=== PATIENT | male | born 1955 | race African-American/Black ===

== ENCOUNTER 2017-07-14 15:16 | Emergency (ER) | payer OTHER ==
--- NOTE | 2017-07-14 16:31 | RAD ---
LEFT WRIST THREE VIEW 07/14/17 HISTORY: Injury. COMPARISON: None. FINDINGS: No fracture. No malalignment. There is an old distal ulnar fracture. Absence of the ulnar styloid lik saige from chronic erosion. Mild degenerative disease of the thumb carpometacarpal joint. There is anterior osteophyte formation of the radiocarpal joint. Possibly an old body along the media l margin of the distal radius. There is a negative ulnar variance. IMPRESSION: 1. Chronic changes. No acute fracture or malalignment is appreciated. 2. Large joint effusion. POS: [facility]
== END 2017-07-14 16:48 | disposition home or self-care (01) ==
LOC: ERS 15:16
DX: M25.532 Pain in left wrist (principal); I10 Essential (primary) hypertension; W01.0XXA Fall on same level from slipping, tripping and stumbling without subsequent striking against object, initial encounter

== ENCOUNTER 2018-04-22 18:58 | Emergency (ER) | payer OTHER ==
[2018-04-22] MEDS ORDERED: HYDROcodone/Acetaminophen 7.5/325 mg Tablet ONE (19:22)
[2018-04-22] MEDS ORDERED: Ibuprofen 800 MG TAB ONE (19:23)
--- NOTE | 2018-04-22 19:32 | RAD ---
RIGHT FOOT THREE VIEWS: 04/22/18 INDICATION: Right foot pain. FINDINGS: Soft tissue swelling of the forefoot. There is scattered osteoarthrosis of the right foot. No acute f racture, subluxation is evident. There is enthesopathic changes off the calcaneus. IMPRESSION: 1. Soft tissue swelling of the ankle and right foot. 2. Scattered osteoarthrosis of the right foot. The osseous structures do not appear appreciably changed from a comparison dated 10/05/16. POS: [facility]
[2018-04-22] MEDS ORDERED: Dexamethasone 4 mg/ml Vial ONE (19:55)
== END 2018-04-22 20:33 | disposition home or self-care (01) ==
LOC: ERS 18:58
DX: M79.671 Pain in right foot (principal); I10 Essential (primary) hypertension; M10.9 Gout, unspecified; W22.8XXA Striking against or struck by other objects, initial encounter
CPT/HCPCS: J1100

== ENCOUNTER 2019-09-13 11:22 | Inpatient (IN) | payer OTHER ==
[~2019-09-13 11:22] MED LIST: Iopamidol-370 76% 500 ML 1 ML ONE
[2019-09-13] MEDS ORDERED: Acetaminophen 500 MG TAB ONE (12:17)
[2019-09-13] MEDS ORDERED: Dexamethasone 10 MG/ML VIAL ONE (12:17)
[2019-09-13] MEDS ORDERED: Ketorolac Tromethamine 30 MG/ML VIAL ONE (12:17)
[2019-09-13] MEDS ORDERED: Sodium Chloride 0.9% 100 ML ONE (12:17)
[2019-09-13] MEDS ORDERED: cefTRIAXone\\ROCEPHIN 2 GM VIAL ONE (12:17)
[2019-09-13] MEDS ORDERED: Azithromycin 500 MG VIAL ONE (12:18)
[2019-09-13 12:28] LABS: #Eosinphils 0.1 thou/uL (0.0-0.7); #Lymphocytes 0.8 thou/uL (1.20-3.40); #Monocytes 0.8 thou/uL (0.11-0.59); #Neutrophils 12.8 thou/uL (1.40-6.50); %Basophils 0.2 % (0.0-1.0); %Eosinophils 0.6 % (0.0-10.0); %Lymphocytes 5.4 % (21.0-51.0); %Monocytes 5.2 % (0.0-10.0); %Neutrophils 88.7 % (42.0-75.0); Hemoglobin 10.3 g/dL (14.0-18.0); Mean Corpuscular HGB CONC 32.9 g/dL (32.0-36.0); Mean Corpuscular Volume 94.2 fL (78.0-98.0); Mean Platelet Volume 6.5 fL (7.4-10.4); Platelet Count 513 thou/uL (130-400); RBC Distribution Width 11.2 % (11.5-14.5); Red Blood Cell (RBC) Count 3.31 mill/uL (4.70-6.10); White Blood Cell (WBC) Count 14.5 thou/uL (4.8-10.8)
--- NOTE | 2019-09-13 12:46 | RAD ---
EXAM: Single view of the chest HISTORY: Covid with chest pain COMPARISON: 09/07/2013 FINDINGS: Single view of the chest shows a normal sized cardiomediastinal silhouette. Linear opacitie s in the peripheral aspect of the right lung may represent atelectasis or subtle infiltrates. The bones are unremarkable IMPRESSION: Possible right-sided pulmonary infiltrates.
[2019-09-13 12:53] LABS: ALT (SGPT) 13 U/L (8-55); AST (SGOT) 28 U/L (5-34); Albumin 3.3 g/dL (3.4-4.8); Alkaline Phosphatase 88 U/L (40-110); Anion Gap 14 mmol/L (10-20); BUN (Urea Nitrogen) 5 mg/dL (8.4-25.7); Bilirubin, Total 0.4 mg/dL (0.2-1.2); Calc. Creatinine Clearance 0 mL/min (70-130); Calcium 9.4 mg/dL (7.8-10.44); Carbon Dioxide 27 mmol/L (23-31); Chloride 97 mmol/L (98-107); Estimated GFR-MDRD Greater than 90; Globulin 4.8 g/dL (2.4-3.5); Glucose 121 mg/dL (80-115); Potassium 4.3 mmol/L (3.5-5.1); Protein, Total 8.1 g/dL (5.8-8.1); Sodium 134 mmol/L (136-145)
[2019-09-13] MEDS ORDERED: Ondansetron PF 4 MG/2 ML Vial IVP PRN (14:37)
[2019-09-13] MEDS ORDERED: Ondansetron ODT 4 MG TAB PO PRN (14:37)
[2019-09-13] MEDS ORDERED: Acetaminophen 325 MG TAB PO PRN (14:37)
[2019-09-13] MEDS ORDERED: Calcium Carbonate 500 MG ChewTAB PO PRN (14:37)
--- NOTE | 2019-09-13 14:44 | PDOC.HHP ---
Hospitalist HPI - History of Present Illness Fever/chills/cough x 4 days History of Present Illness: Mr. Roe is a 64-year-old male with hypertension presented to the emergency room with above complaints. Over the last 1 to 2 months patient has mild chronic cough without significant expectoration. Over the last 1 week his symptoms got worse. He started having fever along with chills and cough. The cough was productive of thick whitish phlegm. He felt generally weak and fatigued. He also complained of shortness of breath on [id number] exertion. No orthopnea paroxysmal nocturnal dyspnea palpitations chest pain or syncope reported. He denies recent immobilization travel. In the emergency room he was found to have fever up to 103 F with chest x-ray showing infiltrate. He was started on empiric antibiotics. COVID testing was sent. ED Course: VITAL SIGNS VITAL SIGNS Svitlana Sep 13, 2019 11:44 ZOILA Biggs Madeline BP: 143/90 (Lying), Pulse: 121, Resp: 18, Temp: 102.8 (Oral), Pain: 9, O2 sat: 92 on (Room Air), Time: 09/13/2019 11:44. VITAL SIGNS [facility] Sep 13, 2019 12:34 THIEN Munguia Jennifer BP: 167/88, Pulse: 116, Resp: 21, O2 sat: 96 on (Room Air), Time: 09/13/2019 12: 34. VITAL SIGNS [facility] Sep 13, 2019 13:03 THIEN Russell Julia BP: 143/87, Pulse: 104, Resp: 20, Temp: 103.1 (Oral), Pain: 8, O2 sat: 94 on ( Room Air), Time: 09/13/2019 13:03. MEDICATION ADMINISTRATION SUMMARY [facility] Sep 13, 2019 14:40 Drug Name Dose Ordered Route Status Time azithromycin intravenous 500 mg IV Piggy Back Given 13:14 09/13/2019 cefTRIAXone injection 2 g IV Push Given 12:34 09/13/2019 dexamethasone sodium phosphate injection 10 mg IV Push Given 12:28 09/13/2019 ketorolac injection 30 mg IV Push Given 12:26 09/13/2019 acetaminophen oral 1000 mg Oral Given 12:24 09/13/2019 sodium chloride 0.9 % intravenous 1000 mL IV Fluid Infusion Given 12:12 2019 Hospitalist ROS - Review of Systems Constitutional: reports: fever, chills, sweats, weakness, malaise Respiratory: reports: cough, shortness of breath, SOB with excertion, sputum. denies: dry, hemoptysis, pleuritic pain, wheezing, other Cardiovascular: denies: chest pain, palpitations, orthopnea, paroxysmal noc. dyspnea, edema, light headedness, other Gastrointestinal: denies: nausea, vomiting, abdominal pain, diarrhea, constipation, melena, hematochezia, other Genitourinary: denies: dysuria, frequency, incontinence, hematuria, retention, other All other systems reviewed; all pertinent +/- noted in HPI/Subj - Medication Medications: Home meds: Lisinopril - dose? Alleve PRN for knee pain. ASA 81 mg Hospitalist History - Past Medical History Cardiac: reports: HTN Musculoskeletal: reports: Osteoarthritis (Both knees) - Past Surgical History Past Surgical History: reports: Other (left finger surgery) - Family History Family History: reports: cancer (mother), cardiac disorder - Social History Smoking Status: Never smoker Alcohol: reports: Occassional Drugs: reports: none Living Situation: With Family (spouse) Occupation: Retired Activity level: independent ambulation Other Social History: Full code. DPOA - spouse - Exam General Appearance: ill appearing Eye: PERRL, anicteric sclera ENT: normocephalic atraumatic, no oropharyngeal lesions Neck: supple, symmetric, no JVD, no thyromegaly Heart: RRR, no gallops, no rubs, normal peripheral pulses Heart - other findings: tachycardic Respiratory: normal chest expansion, rales, rhonchi, tachypneic Gastrointestinal: soft, non-tender, non-distended, normal bowel sounds Extremities: no cyanosis, no clubbing Skin: normal turgor, no lesions Neurological: cranial nerve grossly intact, normal sensation to touch Musculoskeletal: normal tone, normal strength Psychiatric: normal affect, A&O x 3 Hospitalist Results - Labs Result Diagrams: 09/14/19 04:46 09/14/19 04:46 Lab results: WBC 14.5 thou/uL (4.8-10.8) H 09/13/19 12:12 Hgb 10.3 g/dL (14.0-18.0) L 09/13/19 12:12 Hct 31.2 % (42.0-52.0) L 09/13/19 12:12 MCV 94.2 fL (78.0-98.0) 09/13/19 12:12 Plt Count 513 thou/uL (130-400) H 09/13/19 12:12 Neutrophils % 88.7 % (42.0-75.0) H 09/13/19 12:12 Sodium 134 mmol/L (136-145) L 09/13/19 12:12 Potassium 4.3 mmol/L (3.5-5.1) 09/13/19 12:12 Chloride 97 mmol/L (98-107) L 09/13/19 12:12 Carbon Dioxide 27 mmol/L (23-31) 09/13/19 12:12 BUN 5 mg/dL (8.4-25.7) L 09/13/19 12:12 Creatinine 0.86 mg/dL (0.7-1.3) 09/13/19 12:12 Glucose 121 mg/dL (80-115) H 09/13/19 12:12 Lactic Acid 2.2 mmol/L (0.5-2.2) 09/13/19 12:12 Calcium 9.4 mg/dL (7.8-10.44) 09/13/19 12:12 Total Bilirubin 0.4 mg/dL (0.2-1.2) 09/13/19 12:12 AST 28 U/L (5-34) 09/13/19 12:12 ALT 13 U/L (8-55) 09/13/19 12:12 Alkaline Phosphatase 88 U/L (40-110) 09/13/19 12:12 Troponin I Less than 0.010 ng/mL (< 0.028) 09/13/19 12:12 B-Natriuretic Peptide 139.1 pg/mL (0-100) H 09/13/19 12:12 Serum Total Protein 8.1 g/dL (5.8-8.1) 09/13/19 12:12 Albumin 3.3 g/dL (3.4-4.8) L 09/13/19 12:12 Laboratory Tests 09/13/19 14:35 Urine WBC 0-3 Urine Bacteria None Seen Laboratory Tests 09/13/19 12:42 SARS-CoV-2 Rap RNA(RT-PCR) Not Detected Additional comment: Laboratory Tests 09/13/19 09/13/19 09/13/19 12:12 12:12 12:12 Lactic Acid 2.2 Troponin I Less than 0.010 B-Natriuretic Peptide 139.1 H - EKG Interpretation EKG: ST - NSST changes - Reviewed by me - Radiology Interpretation Chest x-ray Status: image reviewed by me Additional Comment: EXAM: Single view of the chest HISTORY: Covid with chest pain COMPARISON: 09/07/2013 FINDINGS: Single view of the chest shows a normal sized cardiomediastinal silhouette. Linear opacitie s in the peripheral aspect of the right lung may represent atelectasis or subtle infiltrates. The bones are unremarkable IMPRESSION: Possible right-sided pulmonary infiltrates. CT scan - chest Status: image reviewed by me Additional Comment: Peripheral nodular infiltrates suspected lung abscess Hospitalist H&P A/P - Plan Plan: Sepsis due to pneumonia suspected Anaerobic with ?Lung abscess Hypertension Degenerative joint disease Sinus tachycardia due to above Anemia probably chronic Hyponatremia Hypomagnesemia Plan: Gentle IV hydration for 24 hours due to sepsis Close monitoring Empiric antibiotics including vancomycin, Meropenem, and azithromycin Monitor vancomycin level Recheck labs in a.m. COVID testing negative Check inflammatory markers Droplet Isolation Consult infectious disease and Pulmonary Replace magnesium Patient is currently on room air Plan of care was discussed with the spouse in detail.
[2019-09-13] MEDS ORDERED: Sodium Chloride 0.9% 1,000 ML IV SCH (14:45)
[2019-09-13] MEDS ORDERED: Cefepime 2 GM in Sodium Chloride 0.9% 100 ML IVPB SCH (14:45)
[2019-09-13 14:56] LABS: Bacteria/HPF None Seen HPF (None Seen); Bilirubin Negative (Negative); Blood, Urine 1+ (Negative); Clarity Clear (Clear); Glucose, Urine (Dipstick) Normal (Negative); Ketone, Urine Negative (Negative); Leukocyte Negative Leu/uL (Negative); Nitrite Negative (Negative); Protein, Urine (Dipstick) Negative (Neg-Trace); Specific Gravity, Urine 1.007 (1.002-1.036); Squamous Epithelial 0-3 HPF (0-3); Urobilinogen Normal mg/dL (Less than 2); WBC/HPF 0-3 HPF (0-3)
[2019-09-13 15:24] LABS: INR-International Normal Ratio 1.1; Prothrombin Time 14.3 sec (12.0-14.7)
[2019-09-13 15:25] LABS: PTT 29.9 sec (22.9-36.1)
[2019-09-13 15:31] LABS: CRP (Inflammatory) 14.24 mg/dL (= or < 0.5); Magnesium 1.7 mg/dL (1.6-2.6)
[2019-09-13 15:33] LABS: D-Dimer Test 4.12 *mcg/mL (0.27-0.43)
[2019-09-13 15:41] LABS: SARS-CoV-2 NAA Rapid Test Not Detected (NotDetected)
[2019-09-13 15:48] LABS: Lactic Acid 1.3 mmol/L (0.5-2.2)
--- NOTE | 2019-09-13 16:07 | CT ---
CTA CHEST WITH CONTRAST: 09/13/19 INDICATIONS: Cough, chills and chest pain. CT angio protocol was followed with multiplanar reconstruction and 3D postprocessing. FINDINGS: The pulmonary arteries show adequate enhancement. No evidence of pulmonary embolus identified. Thorac ic aorta is unremarkable with no evidence of dissection. The mediastinum shows nonspecific adenopathy . There is bilateral hilar adenopathy. There are numerous focal infiltrates seen in the periphery of both lungs. These are prominent in the upper lobes bilaterally. Scattered nodular infiltrate in the left lower lobe as a central cavitation. There is a mass-like density in the right infrahilar region which measures 3 to 4 cm. This has tiny gas pockets within a central lucency which is concerning for developing lung abscess. There is a small right pleural effusion with right basilar atelectasis. Images through upper abdomen unremarkable. Osseous structures unremarkable. IMPRESSION: 1. No evidence of pulmonary embolus. 2. Numerous peripheral nodular infiltrates as described above. There is a mass-like density in t he right infrahilar region with central lucency and tiny central gas pockets concerning for developin g lung abscess. Small right pleural effusion. Close follow-up is recommended. POS: [facility]
[2019-09-13] MEDS ORDERED: Magnesium 2 GM/50 ML 2 GM in Premix Bag 1 BAG IVPB SCH ×2 (16:15→20:00)
[2019-09-13] MEDS ORDERED: Vancomycin 1 GM/200 ML BAG ONE (16:30)
[2019-09-13] MEDS ORDERED: hydrALAZINE 20 MG/ML VIAL SLOW IVP PRN (16:33)
[2019-09-13] MEDS ORDERED: Albuterol 200 PUFF (6.7GM INHALER) INH SCH (18:30)
[2019-09-13] MEDS: Albuterol 200 PUFF (6.7GM INHALER) INH SCH (20:00)
[2019-09-13] MEDS: MEROPENEM 1 GM/50 ML 1 GM in Premix Bag 1 BAG IVPB SCH (21:25)
[2019-09-13] MEDS: Sodium Chloride 0.9% 1,000 ML IV SCH (21:26)
[2019-09-13] MEDS: Ascorbic Acid 500 mg Chewable Tablet PO SCH (21:27)
[2019-09-13] MEDS: Enoxaparin Sodium 40 MG/0.4 ML SYRINGE SC SCH (21:27)
[2019-09-13] MEDS: Famotidine 20 MG TAB PO SCH (21:29)
[2019-09-13] MEDS: guaiFENesin ER 600 MG TAB PO SCH (21:29)
[2019-09-13] MEDS: Saccharomyces boulardii 250 MG CAP PO SCH (21:29)
[2019-09-13] MEDS: Zinc Sulfate 220 MG CAP PO SCH (21:30)
[2019-09-14] MEDS: Albuterol 200 PUFF (6.7GM INHALER) INH SCH ×7 (00:21→22:22)
[2019-09-14] MEDS: Vancomycin 1.5 GRAM/300 ML BAG 1.5 GM in Premix Bag 1 BAG IVPB SCH ×2 (00:40→11:01)
[2019-09-14] MEDS: Benzonatate 100 MG CAP PO PRN ×2 (03:08→22:09)
[2019-09-14] MEDS: MEROPENEM 1 GM/50 ML 1 GM in Premix Bag 1 BAG IVPB SCH ×3 (03:08→20:00)
[2019-09-14] MEDS: Sodium Chloride 0.9% 1,000 ML IV SCH ×2 (04:07→08:52)
[2019-09-14 05:56] LABS: Phosphorus 2.2 mg/dL (2.3-4.7)
[2019-09-14 05:58] LABS: Lactic Acid 2.2 mmol/L (0.5-2.2)
[2019-09-14 05:59] LABS: ALT (SGPT) 10 U/L (8-55); AST (SGOT) 15 U/L (5-34); Albumin 3.2 g/dL (3.4-4.8); Alkaline Phosphatase 89 U/L (40-110); Anion Gap 12 mmol/L (10-20); BUN (Urea Nitrogen) 9 mg/dL (8.4-25.7); Bilirubin, Total 0.3 mg/dL (0.2-1.2); Calc. Creatinine Clearance 117 mL/min (70-130); Calcium 8.7 mg/dL (7.8-10.44); Carbon Dioxide 24 mmol/L (23-31); Chloride 99 mmol/L (98-107); Estimated GFR-MDRD Greater than 90; Globulin 4.5 g/dL (2.4-3.5); Glucose 135 mg/dL (80-115); Magnesium 2.3 mg/dL (1.6-2.6); Potassium 4.1 mmol/L (3.5-5.1); Protein, Total 7.7 g/dL (5.8-8.1); Sodium 131 mmol/L (136-145)
[2019-09-14 06:09] LABS: Band 4 % (5-11); Hemoglobin 9.8 g/dL (14.0-18.0); Hypochromia SLIGHT = 6-15 cells (100X) (0-5/hpf); Lymphocytes 6 % (21-51); MDiff Complete? YES; Mean Corpuscular HGB CONC 31.9 g/dL (32.0-36.0); Mean Corpuscular Hemoglobin 30.7 pg (27.0-31.0); Mean Corpuscular Volume 96.1 fL (78.0-98.0); Mean Platelet Volume 7.1 fL (7.4-10.4); Monocytes 5 % (0-10); Neutrophil 84 % (42-75); Platelet Count 477 thou/uL (130-400); Platelet Morphology Comment Appears Adequate; RBC Distribution Width 11.4 % (11.5-14.5); Reactive Lymphocytes 1 % (0-10); White Blood Cell (WBC) Count 20.6 thou/uL (4.8-10.8)
[2019-09-14] MEDS ORDERED: Sodium Chloride 0.9% 1,000 ML IV SCH (08:08)
[2019-09-14] MEDS: Famotidine 20 MG TAB PO SCH ×2 (08:51→20:00)
[2019-09-14] MEDS: Enoxaparin Sodium 40 MG/0.4 ML SYRINGE SC SCH (08:51)
[2019-09-14] MEDS: guaiFENesin ER 600 MG TAB PO SCH ×2 (08:51→20:00)
[2019-09-14] MEDS: Multivit, Therapeutic 1 TAB PO SCH (08:52)
[2019-09-14] MEDS: PHOS-NAK 1 PKT PACK PO SCH ×2 (11:02→16:48)
[2019-09-14] MEDS ORDERED: Azithromycin 500 MG in Sodium Chloride 0.9% 250 ML 250 ML IVPB SCH (13:00)
[2019-09-14 14:18] VITALS: BMI 26.9
[2019-09-14 17:16] LABS: Legionella Urinary Ag Negative (Negative); Strep pneumo Urine Ag NEGATIVE (NEGATIVE)
[2019-09-14 17:20] LABS: HIV (1/2) Antibody/Antigen Non-Reactive (NonReactive); HIV 1/2 INDEX 0.19 S/CO (<1.00); Hep C IgG Ab Non-Reactive (NonReactive); Hep C Index 0.44 S/CO (0-0.79)
--- NOTE | 2019-09-14 19:08 | PDOC.HOSPP ---
- Subjective Encounter Date: 09/14/19 Encounter Time: 18:00 Subjective: Patient seen and examined for sepsis. Symptomatically feels better. Continues to have cough with some production. No chest pain palpitations nausea vomiting diarrhea reported. - Objective Vital Signs & Weight: Vital Signs (12 hours) Temp Pulse Resp BP Pulse Ox 09/14/19 18:54 96 09/14/19 16:57 99.6 F 88 16 121/89 98 09/14/19 11:09 97.7 F 81 16 158/82 H 99 09/14/19 07:44 97.9 F 87 18 163/88 H 98 Weight Admit Weight 208 lb 8 oz Weight 210 lb I&O: 09/13/19 09/14/19 09/15/19 06:59 06:59 06:59 Intake Total 7340 Output Total 3150 Balance 4190 Result Diagrams: 09/14/19 04:46 09/14/19 04:46 Additional Labs: Microbiology 09/13/19 15:13 Venous blood - Right Arm Blood Culture - Preliminary Specimen has been received and culture in progress. No Growth to date. 09/13/19 15:13 Venous blood - Left Arm Blood Culture - Preliminary Specimen has been received and culture in progress. No Growth to date. Laboratory Tests 09/13/19 09/14/19 09/14/19 12:42 04:46 04:46 ESR Westergren Phosphorus 2.2 L Cortisol 6.40 Hepatitis C Antibody HIV 1&2 Antigen & Ab Ur L.pneumophila Ag SARS-CoV-2 Rap RNA(RT-PCR) Not Detected Ur Strep pneumoniae Ag 09/14/19 09/14/19 09/14/19 16:10 16:16 16:51 ESR Westergren 48 Phosphorus Cortisol Hepatitis C Antibody Non-Reactive HIV 1&2 Antigen & Ab Non-Reactive Ur L.pneumophila Ag SARS-CoV-2 Rap RNA(RT-PCR) Ur Strep pneumoniae Ag NEGATIVE 09/14/19 16:51 ESR Westergren Phosphorus Cortisol Hepatitis C Antibody HIV 1&2 Antigen & Ab Ur L.pneumophila Ag Negative SARS-CoV-2 Rap RNA(RT-PCR) Ur Strep pneumoniae Ag Radiology Reviewed by me: Yes (CT chestnodular peripheral infiltrates) EKG Reviewed by me: Yes (Sinus rhythm) Hospitalist ROS - Review of Systems Respiratory: reports: cough, dry, SOB with excertion, sputum. denies: shortness of breath, hemoptysis, pleuritic pain, wheezing, other Cardiovascular: denies: chest pain, palpitations, orthopnea, paroxysmal noc. dyspnea, edema, light headedness, other Gastrointestinal: denies: nausea, vomiting, abdominal pain, diarrhea, constipation, melena, hematochezia, other - Medication Medications: Active Medications Generic Name Dose Route Start Last Admin Trade Name Freq PRN Reason Stop Dose Admin Albuterol Sulfate 2 puff 09/13/19 22:30 09/14/19 18:54 Proventil Hfa INH 2 puff [id number] MOISES Administration Ascorbic Acid 1,000 mg 09/13/19 21:00 09/13/19 21:27 Vitamin C PO 1,000 mg HS MOISES Administration Benzonatate 100 mg 09/14/19 01:06 09/14/19 03:08 Tessalon PO 100 mg TIDPRN PRN Administration Cough Famotidine 20 mg 09/13/19 21:00 09/14/19 08:51 Pepcid PO 20 mg BID MOISES Administration Guaifenesin 600 mg 09/13/19 21:00 09/14/19 08:51 Mucinex PO 600 mg Q12HR MOISES Administration Meropenem 1 gm/ Device 50 mls @ 100 mls/hr 09/13/19 20:00 09/14/19 11:02 IVPB 50 mls 0400,1200,2000 OMISES Administration Sodium Chloride 1,000 mls @ 70 mls/hr 09/14/19 08:15 09/14/19 08:52 Normal Saline 0.9% IV 1,000 mls .[id number] MOISES Administration Multivitamins 1 tab 09/14/19 09:00 09/14/19 08:52 Theragran PO 1 tab DAILY MOISES Administration Saccharomyces Boulardii 250 mg 09/13/19 21:00 09/13/19 21:29 Florastor PO 250 mg HS MOISES Administration Zinc Sulfate 220 mg 09/13/19 21:00 09/13/19 21:30 Zinc Sulfate PO 220 mg HS MOISES Administration - Exam General Appearance: ill appearing Heart: RRR, no gallops, no rubs, normal peripheral pulses Respiratory: no wheezes, no rales, normal chest expansion, rhonchi Gastrointestinal: soft, non-tender, normal bowel sounds, no guarding, no rigidity Extremities: no cyanosis, no clubbing, no edema Extremities - other findings: no calf tenderness Neurological: no new deficit Psychiatric: normal affect, A&O x 3 Hosp A/P - Plan plan discussed w/ family (spouse), PT/OT, incentive spirometry, DVT proph w/ lovenox Sepsis due to pneumonia suspected Anaerobic with ?Lung abscess Hypertension Degenerative joint disease Sinus tachycardia due to above Chronic anemia prob due to nutritional def Hyponatremia Hypomagnesemia Hypophosphatemia Plan: 09/13 Continue meropenem. Vancomycin and azithromycin discontinued. Replace phosphorus Continue gentle IV hydration Reduce Lovenox to 40 mg daily for DVT prophylaxis Infectious disease and pulmonary input appreciated Continue to monitor closely. COVID testing negative. Recheck labs in a.m. 09/12 Gentle IV hydration for 24 hours due to sepsis Close monitoring Empiric antibiotics including vancomycin, Meropenem, and azithromycin Monitor vancomycin level Recheck labs in a.m. COVID testing negative Check inflammatory markers Droplet Isolation Consult infectious disease and Pulmonary Replace magnesium Patient is currently on room air Plan of care was discussed with the spouse in detail.
[2019-09-14] MEDS: Saccharomyces boulardii 250 MG CAP PO SCH (20:00)
[2019-09-14] MEDS: Zinc Sulfate 220 MG CAP PO SCH (20:00)
[2019-09-14] MEDS: Ascorbic Acid 500 mg Chewable Tablet PO SCH (20:00)
[2019-09-14 20:02] LABS: SARS-CoV-2 IgG Ab Non-Reactive (NonReactive); SARS-CoV-2 IgG Index 0.03 S/CO (< 1.40)
--- NOTE | 2019-09-14 22:50 | CON ---
DATE OF CONSULTATION: 09/14/2019 HISTORY OF PRESENT ILLNESS: Mr. Roe is a 64-year-old male with 1 month of cough, it has been coming and going. Over the last 2 weeks, he tells me his symptoms got worse. He also had associated fever. He denies chills. He has had no hemoptysis. He has no history of lung disease leading up to this. He says he is a nonsmoker. He does tell me that he had pneumonia in the past, but he cannot remember where he was cared for. I do not see any documentation of the hospitalization here. PAST MEDICAL HISTORY AND PAST SURGICAL HISTORY: Remarkable for, 1. Hypertension. 2. Osteoarthritis. 3. History of finger surgery in the past. FAMILY HISTORY: Positive for cancer and heart disease. Negative for lung disease in early age. REVIEW OF SYSTEMS: A 10-point review of systems is otherwise negative. He has had no gross hematuria. PHYSICAL EXAMINATION: GENERAL: He is a pleasant gentleman, in no distress. He is afebrile. He is a heavy daily beer drinker, he says. VITAL SIGNS: Heart rate is 80, respiratory rate 16, oximetry is 98% to 99% on room air, blood pressure 158/82. HEAD AND NECK: Unremarkable. NECK: He has no cervical lymphadenopathy. LUNGS: Clear. CHEST: He has bilateral nodular infiltrates. HEART: Regular rhythm. S1 and S2 are normal. ABDOMEN: Soft and nontender. EXTREMITIES: Without clubbing, cyanosis, or edema. NEUROLOGIC: Nonfocal. LABORATORY DATA: He has microhematuria with 4 to 6 red cells. White count is 20.6, hemoglobin 9.8, platelets 477. Sodium 131, potassium 4.1, chloride 99, bicarb 24, BUN 9, creatinine 0.83. His COVID screen was negative. IMPRESSION: History of heavy alcohol use with bilateral nodular infiltrates. This certainly could be aspiration mediated. He also could have vasculitis, although he is getting out of the age group where nodular ANCA positive vasculitis is high on the differential. He agreed with empiric treatments with antibiotics with anaerobic coverage. Bilateral nodules, staph emboli is in the differential. . I will follow with the other physicians caring for him. TIME SPENT: This is a 50-minute consult, 50% of the time was spent on the unit coordinating care. Job ID: [id number] [facility]
--- NOTE | 2019-09-14 23:33 | CON ---
DATE OF CONSULTATION: 09/14/2019 REASON FOR CONSULTATION: Pneumonia. HISTORY OF PRESENT ILLNESS: A 64-year-old who has a history of gout, hypertension, and about 2 years ago was diagnosed with pneumonia at [facility] and was kept there for about 2 days and then was sent home. He felt better for a while for the next few many months and he lives in [place] and has other family members in the household with them and he then a few weeks ago started having intermittent coughing spells and 5-7 days ago, he started having more cough and more fever up to 103 so ended up coming to the hospital. His temperature is almost 103. He is tachycardic and O2 saturations were 92 on room air. He was admitted yesterday. Initial exam demonstrated the patient to be in some distress but no pain. Lungs with inspiratory crackles in base and lower lobes. His other findings on admission: White cell count 14.5, hemoglobin 10.3, platelets 513, with 88% neutrophils. Lymphocytes were decreased at 0.8, and D-dimer was 4.12 and creatinine 0.86. Liver profile normal. Albumin 3.3, globulin 4.8. BNP 139, CRP was 14. SARS-CoV-2 was not detected by PCR yesterday. Urinalysis with 0 to 3 wbc's. The patient had a CT chest angio which showed no evidence of pulmonary embolism. There are numerous peripheral nodular infiltrates which are more prominent in the upper lobes bilaterally. Scattered nodular areas in the left lower lobe, there was a central cavitation. There was a masslike density in the right infrahilar region measuring 3-4 cm with tiny gas pockets. Looking at the scan, the 1st lesion is in the right upper lobe, and it is kind of next to the pleural surface. There is some irregularity in the pleural surface and the lesion is attached to it in the upper segment and has four of an oval-shaped nodular characteristic. Around this area, there are some regions of ground-glass opacification and then there is 2 more in the left side with kind of irregular-shaped nodular area on the posterior aspect of the left upper lobe and there was another one very subpleural on the left side and there is a larger lesion on the right side, very attached to the pleura with the base pretty much stuck to the pleural surface. There is a larger nodular lesion with some gas inside it next to the hilar region and mediastinal area and there are smaller nodular areas in the left lower lobe going towards the left lower lobe with a central nodularity or cavitation. Currently, Mr. Roe is finishing his shower. He got out of the restroom. He was coughing intermittently, not much sputum production ever. He did not have a headache. He did not have shortness of breath or chest pain. No abdominal pain or diarrhea or genitourinary symptoms. No joint symptoms. No neurological symptoms. MEDICAL HISTORY: Excessive alcoholic beverage use, he drinks at least a six- pack a day on a regular basis; hypertension; osteoarthritis; gout. He has had an episode of pneumonia about 2 years ago, treated at [facility] Emergency Room. SOCIAL HISTORY: Never smoker. He lives in [place] with family members. Nobody in the family has been diagnosed with COVID infection. He drinks 6-pack of beer a day. He works intermittently, used to work mostly in [place]. FAMILY HISTORY: Noncontributory. ALLERGIES: NO KNOWN DRUG ALLERGIES. MEDICATION LIST: 1. Azithromycin. 2. Meropenem. 3. Vancomycin. PHYSICAL EXAMINATION: VITAL SIGNS: He has been afebrile since admission when he was almost 103 and BP 150/82, pulse 81, respirations 16, O2 saturation 99% on room air. GENERAL: Pleasant, awake, alert, and oriented. SKIN: Exam was normal. There is no lymphadenopathy. HEENT: Ocular movements conjugate. Oral cavity with quite a few missing teeth, remainder ones with lot of decay and gum disease. NECK: Supple. No jugular venous distention. LUNGS: Symmetric air entry without any obvious crackles or wheezing. HEART: S1 and S2. Regular rate. No S3 or S4. No murmurs. ABDOMEN: Soft, not distended or tender. No ascites. No bladder distention. EXTREMITIES: No joint inflammatory activity and the pulses 1+ in dorsalis pedis. Plantar responses are flexor. No clonus. NEUROLOGIC: Speech is normal. Recollection is normal. His cognitive function is pretty good. LABORATORY DATA: Urinalysis has been discussed above was pretty normal. Repeat white cell count 20.6, hemoglobin 9.8, platelets 477, 84% neutrophils, 4% bands , and INR was 1.1. Sodium 134, creatinine 0.86. Liver profile normal. CRP was 14.24. Albumin 3.3. ASSESSMENT: History of excessive alcoholic beverage use in the past and prior episode of pneumonia two years ago treated elsewhere and somewhat chronic respiratory symptoms, now with exacerbation with cough and had a fever and nodular lung infiltrates, a lot of them are subpleural with a negative first SARS-CoV-2 PCR test. DISCUSSION: Differential diagnosis includes an atypical infection, community-acquired, aspiration is a concern in view of his beer drinking habits in the subpleural nature of those. Bacteremia is something to be concerned with. The lesions are a bit too big and few for endocarditis. Atypical pathogens including fungal and mycobacterial organisms are to be considered as well, although less likely. He seems to have responded initially to antimicrobial therapy. The O2 requirements are low. COVID infection sometimes can cause atypical nodular infiltrates but not this degree of nodularity, usually it is more of a reverse halo type of infiltrate with nodularity. His nodules have a very dense center, also the subpleural nature of them is kind of atypical and then there is this hilar mass-like lesion. I think that the pretest likelihood for COVID is less than 50% to 40%, so I think this one negative test brings it down the post test likely to less than 10%, so we can go ahead and discontinue isolation. We will go ahead and submit HIV, hepatitis C serology and strep pneumoniae and Legionella antigen in urine. Discontinue vancomycin since the blood cultures are negative thus far and discontinue azithromycin, continue meropenem. Job ID: [id number] [email or web address]
[2019-09-15] MEDS: Sodium Chloride 0.9% 1,000 ML IV SCH (00:49)
[2019-09-15] MEDS: Albuterol 200 PUFF (6.7GM INHALER) INH SCH ×6 (03:33→22:09)
[2019-09-15] MEDS: MEROPENEM 1 GM/50 ML 1 GM in Premix Bag 1 BAG IVPB SCH ×2 (04:09→14:23)
[2019-09-15 04:35] LABS: #Eosinphils 0.1 thou/uL (0.0-0.7); #Lymphocytes 1.4 thou/uL (1.20-3.40); #Neutrophils 14.5 thou/uL (1.40-6.50); %Eosinophils 0.6 % (0.0-10.0); %Lymphocytes 8.1 % (21.0-51.0); %Monocytes 5.9 % (0.0-10.0); %Neutrophils 85.5 % (42.0-75.0); Hemoglobin 9.4 g/dL (14.0-18.0); Mean Corpuscular HGB CONC 33.3 g/dL (32.0-36.0); Mean Corpuscular Hemoglobin 31.8 pg (27.0-31.0); Mean Corpuscular Volume 95.5 fL (78.0-98.0); Mean Platelet Volume 6.9 fL (7.4-10.4); Platelet Count 513 thou/uL (130-400); RBC Distribution Width 11.5 % (11.5-14.5); Red Blood Cell (RBC) Count 2.96 mill/uL (4.70-6.10); White Blood Cell (WBC) Count 16.9 thou/uL (4.8-10.8)
[2019-09-15 04:57] LABS: Phosphorus 2.6 mg/dL (2.3-4.7)
[2019-09-15 04:58] LABS: ALT (SGPT) 15 U/L (8-55); AST (SGOT) 28 U/L (5-34); Albumin 2.9 g/dL (3.4-4.8); Alkaline Phosphatase 76 U/L (40-110); Anion Gap 12 mmol/L (10-20); BUN (Urea Nitrogen) 8 mg/dL (8.4-25.7); Bilirubin, Total 0.2 mg/dL (0.2-1.2); Calc. Creatinine Clearance 137 mL/min (70-130); Calcium 8.4 mg/dL (7.8-10.44); Carbon Dioxide 24 mmol/L (23-31); Chloride 101 mmol/L (98-107); Estimated GFR-MDRD Greater than 90; Globulin 4.2 g/dL (2.4-3.5); Glucose 82 mg/dL (80-115); Potassium 3.8 mmol/L (3.5-5.1); Protein, Total 7.1 g/dL (5.8-8.1); Sodium 133 mmol/L (136-145)
[2019-09-15] MEDS: guaiFENesin ER 600 MG TAB PO SCH ×2 (08:54→20:06)
[2019-09-15] MEDS: Enoxaparin Sodium 40 MG/0.4 ML SYRINGE SC SCH (08:55)
[2019-09-15] MEDS: Multivit, Therapeutic 1 TAB PO SCH ×2 (08:55→20:06)
[2019-09-15] MEDS: Famotidine 20 MG TAB PO SCH ×2 (08:56→20:06)
[2019-09-15] MEDS ORDERED: Nitroglycerin 2% Ointment 1 INCH/1 GM Packet TOP SCH (09:00)
[2019-09-15] MEDS ORDERED: Sodium Chloride 0.9% 1,000 ML IV SCH (09:05)
[2019-09-15] MEDS ORDERED: Nitroglycerin 0.4 MG TAB (25 Tab Bottle) PO PRN (09:06)
[2019-09-15] MEDS ORDERED: Aspirin 325 mg Enteric Coated Tablet PO SCH (09:15)
--- NOTE | 2019-09-15 09:29 | RAD ---
PORTABLE CHEST: Date: 09/15/2019 PROVIDED CLINICAL HISTORY: Chest pain and shortness of breath. FINDINGS: Comparison with 09/13/2019. Interval increase in the degree of air space opacity involving the right lung. There is elevation of the right hemidiaphragm. No pleural fluid or pneumothorax apparent. IMPRESSION: Increasing conspicuity of right hemithoracic air space disease. POS: [facility]
[2019-09-15] MEDS: HYDROcodone/Acetaminophen 5/325 mg Tablet PO PRN ×2 (10:07→20:06)
[2019-09-15] MEDS: guaiFENesin/Codeine Phosphate 200 mg/20 mg 10 ml UD Cup PO PRN ×2 (10:08→20:10)
[2019-09-15 10:10] LABS: Troponin I 0.014 ng/mL (< 0.028)
[2019-09-15 13:11] LABS: Troponin I 0.018 ng/mL (< 0.028)
[2019-09-15] MEDS ORDERED: predniSONE 20 MG TAB PO SCH (13:45)
--- NOTE | 2019-09-15 13:46 | PRG ---
DATE OF SERVICE: 09/15/2019 SUBJECTIVE: Jd Roe is doing better. He said he was having some bad pleurisy this morning, but says that is now better. OBJECTIVE: VITAL SIGNS: He is afebrile since admission. Heart rate is 101, respiratory rate is 18, oximetry is 98% on room air, and blood pressure 166/87. LUNGS: Clear. HEART: Regular rhythm. ABDOMEN: Soft. LABORATORY DATA: Blood cultures are negative. IMPRESSION: Multiple nodular infiltrates, likely secondary to aspiration. There is no evidence that he has Staph aureus bacteremia. His sedimentation rate is 48, which is a little low for a vasculitis. I doubt that this is Yahir's. We will continue with antimicrobial therapy. We will add a low dose of steroids. We will await his rheumatologic panels. His white count today is 16.9, hemoglobin is 9.4. His electrolytes are unremarkable. He drinks more beer that he admits. He is still hazy to the right lung base on today's chest radiograph, but given his clinical improvement, I would not recommend any type of intervention such as a thoracentesis. We will continue to follow. Job ID: [id number]
--- NOTE | 2019-09-15 15:57 | PDOC.HOSPP ---
- Subjective Encounter Date: 09/15/19 Encounter Time: 12:00 Subjective: Patient seen and examined for pneumonia. Had some right-sided chest discomfort earlier that was getting worse with coughing. He continues to have cough which is productive of small amount of thick phlegm. He denies any fever or chills. No diaphoresis, nausea, vomiting or syncope reported. - Objective Vital Signs & Weight: Vital Signs (12 hours) Temp Pulse Pulse Resp BP BP Pulse Ox 09/15/19 10:00 90 164/84 H 09/15/19 08:50 98.7 F 101 H 18 166/87 H 98 09/15/19 06:21 98 09/15/19 04:00 98.7 F 106 H 18 164/84 H 98 Pulse Ox 09/15/19 10:00 98 09/15/19 08:50 09/15/19 06:21 09/15/19 04:00 Weight Admit Weight 208 lb 8 oz Weight 218 lb 2 oz I&O: 09/14/19 09/15/19 09/16/19 06:59 06:59 06:59 Intake Total 8190 Output Total 4550 Balance 3640 Result Diagrams: 09/15/19 03:57 09/15/19 03:57 Radiology Reviewed by me: Yes (Chest x-ray right-sided infiltrate) EKG Reviewed by me: Yes (Tele SR) Hospitalist ROS - Review of Systems Cardiovascular: reports: chest pain (earlier - now resolved). denies: palpitations, orthopnea, paroxysmal noc. dyspnea, edema, light headedness, other Gastrointestinal: denies: nausea, vomiting, abdominal pain, diarrhea, constipation, melena, hematochezia, other - Medication Medications: Active Medications Generic Name Dose Route Start Last Admin Trade Name Freq PRN Reason Stop Dose Admin Hydrocodone Bitart/Acetaminophen 1 tab 09/15/19 09:04 09/15/19 10:07 [place] 5/325 PO 1 tab Q6H PRN Administration Moderate Pain (4-6) Albuterol Sulfate 2 puff 09/13/19 22:30 09/15/19 11:38 Proventil Hfa INH 2 puff [id number] MOISES Administration Benzonatate 100 mg 09/14/19 01:06 09/14/19 22:09 Tessalon PO 100 mg TIDPRN PRN Administration Cough Calcium Carbonate 1,000 mg 09/13/19 14:37 09/14/19 22:09 Tums PO 1,000 mg Q4H PRN Administration Heartburn or Indigestion Enoxaparin Sodium 40 mg 09/15/19 09:00 09/15/19 08:55 Lovenox SC 40 mg 0900 MOISES Administration Famotidine 20 mg 09/13/19 21:00 09/15/19 08:56 Pepcid PO Not Given BID MOISES Guaifenesin 600 mg 09/13/19 21:00 09/15/19 08:54 Mucinex PO 600 mg Q12HR MOISES Administration Guaifenesin/Codeine Phosphate 5 ml 09/15/19 09:04 09/15/19 10:08 Robitussin Ac PO 5 ml Q6H PRN Administration Cough Multivitamins 1 tab 09/14/19 09:00 09/15/19 08:55 Theragran PO 1 tab DAILY MOISES Administration Saccharomyces Boulardii 250 mg 09/13/19 21:00 09/14/19 20:00 Florastor PO 250 mg HS MOISES Administration - Exam General Appearance: NAD Neck: supple, no JVD Heart: RRR, no gallops, no rubs Respiratory: no wheezes, rhonchi Gastrointestinal: soft, non-distended, normal bowel sounds, no guarding, no rigidity Extremities: no cyanosis Neurological: no new deficit Hosp A/P - Plan DVT proph w/lovenox, DVT proph w/SCDs Sepsis due to pneumonia suspected Anaerobic with ?Lung abscess Pleuritic CP -09/14 - prob due to above Hypertension Degenerative joint disease Sinus tachycardia due to above Chronic anemia prob due to nutritional def Hyponatremia Hypomagnesemia Hypophosphatemia Dental caries Plan: 09/14 Continue IV meropenem. Stat EKG and chest x-ray reviewed. Troponins negative. Discontinue IV fluids. Add incentive spirometry. Continue other medications as above. Recheck labs in a.m. Add chlorhexidine mouthwash twice daily. Echo pending. 09/13 Continue meropenem. Vancomycin and azithromycin discontinued. Replace phosphorus Continue gentle IV hydration Reduce Lovenox to 40 mg daily for DVT prophylaxis Infectious disease and pulmonary input appreciated Continue to monitor closely. COVID testing negative. Recheck labs in a.m. 09/12 Gentle IV hydration for 24 hours due to sepsis Close monitoring Empiric antibiotics including vancomycin, Meropenem, and azithromycin Monitor vancomycin level Recheck labs in a.m. COVID testing negative Check inflammatory markers Droplet Isolation Consult infectious disease and Pulmonary Replace magnesium Patient is currently on room air Plan of care was discussed with the spouse in detail.
[2019-09-15] MEDS: Amoxicillin/Potassium Clav 875 MG TAB PO SCH (20:06)
[2019-09-15] MEDS: Thiamine 100 MG TAB PO SCH (20:06)
[2019-09-15] MEDS: Saccharomyces boulardii 250 MG CAP PO SCH (20:06)
[2019-09-15] MEDS: Folic Acid 1 MG TAB PO SCH (20:06)
[2019-09-15] MEDS: Chlorhexidine Gluconate 15 ML UDCUP SSP SCH (20:15)
[2019-09-15] MEDS: cloNIDine 0.1 MG TAB PO PRN (20:15)
[2019-09-16] MEDS: Albuterol 200 PUFF (6.7GM INHALER) INH SCH ×6 (02:24→23:30)
[2019-09-16 03:31] LABS: #Lymphocytes 0.7 thou/uL (1.20-3.40); #Monocytes 0.8 thou/uL (0.11-0.59); #Neutrophils 13.9 thou/uL (1.40-6.50); %Lymphocytes 4.6 % (21.0-51.0); %Monocytes 5.1 % (0.0-10.0); %Neutrophils 90.3 % (42.0-75.0); Hemoglobin 8.9 g/dL (14.0-18.0); Mean Corpuscular HGB CONC 33.8 g/dL (32.0-36.0); Mean Corpuscular Volume 94.7 fL (78.0-98.0); Mean Platelet Volume 7.1 fL (7.4-10.4); Platelet Count 511 thou/uL (130-400); RBC Distribution Width 11.5 % (11.5-14.5); Red Blood Cell (RBC) Count 2.78 mill/uL (4.70-6.10); White Blood Cell (WBC) Count 15.4 thou/uL (4.8-10.8)
[2019-09-16 04:07] LABS: ALT (SGPT) 20 U/L (8-55); AST (SGOT) 30 U/L (5-34); Albumin 2.8 g/dL (3.4-4.8); Alkaline Phosphatase 79 U/L (40-110); Anion Gap 12 mmol/L (10-20); BUN (Urea Nitrogen) 6 mg/dL (8.4-25.7); Bilirubin, Total Less than 0.2 mg/dL (0.2-1.2); Calc. Creatinine Clearance 136 mL/min (70-130); Calcium 8.4 mg/dL (7.8-10.44); Carbon Dioxide 23 mmol/L (23-31); Chloride 102 mmol/L (98-107); Estimated GFR-MDRD Greater than 90; Glucose 214 mg/dL (80-115); Potassium 4.1 mmol/L (3.5-5.1); Protein, Total 6.8 g/dL (5.8-8.1); Sodium 133 mmol/L (136-145)
[2019-09-16] MEDS: HYDROcodone/Acetaminophen 5/325 mg Tablet PO PRN ×2 (05:19→20:12)
[2019-09-16] MEDS: guaiFENesin/Codeine Phosphate 200 mg/20 mg 10 ml UD Cup PO PRN (05:20)
[2019-09-16] MEDS: predniSONE 20 MG TAB PO SCH (08:13)
[2019-09-16] MEDS: Amoxicillin/Potassium Clav 875 MG TAB PO SCH ×2 (08:13→20:10)
[2019-09-16] MEDS: Aspirin 81 mg Enteric Coated Tablet PO SCH (08:13)
[2019-09-16] MEDS: Chlorhexidine Gluconate 15 ML UDCUP SSP SCH ×2 (08:14→20:15)
[2019-09-16] MEDS: Famotidine 20 MG TAB PO SCH ×2 (08:14→20:11)
[2019-09-16] MEDS: Enoxaparin Sodium 40 MG/0.4 ML SYRINGE SC SCH (08:14)
[2019-09-16] MEDS: guaiFENesin ER 600 MG TAB PO SCH ×2 (08:14→20:12)
[2019-09-16] MEDS ORDERED: Lisinopril 20 MG TAB PO SCH (10:00)
[2019-09-16] MEDS: cloNIDine 0.1 MG TAB PO PRN (12:40)
--- NOTE | 2019-09-16 13:33 | PDOC.HOSPP ---
- Subjective Encounter Date: 09/16/19 Encounter Time: 10:30 Subjective: Patient seen and examined for pneumonia with sepsis. Chest discomfort has resolved. Denies any pleuritic chest pain. Ambulated in the hallway without significant shortness of breath. - Objective Vital Signs & Weight: Vital Signs (12 hours) Temp Pulse Resp BP BP BP Pulse Ox 09/16/19 12:40 198/103 H 09/16/19 11:19 183/92 H 09/16/19 11:18 98.2 F 80 16 183/92 H 98 09/16/19 08:10 98.2 F 74 16 169/95 H 99 09/16/19 08:00 99 09/16/19 04:00 98.2 F 89 18 165/93 H 97 Weight Admit Weight 208 lb 8 oz Weight 220 lb 2 oz I&O: 09/15/19 09/16/19 09/17/19 06:59 06:59 06:59 Intake Total 8190 1980 Output Total 4550 3200 Balance 3640 -1220 Result Diagrams: 09/16/19 03:08 09/16/19 03:08 Additional Labs: Microbiology 09/13/19 15:13 Venous blood - Right Arm Blood Culture - Preliminary NO GROWTH AT 48 HOURS 09/13/19 15:13 Venous blood - Left Arm Blood Culture - Preliminary NO GROWTH AT 48 HOURS Laboratory Tests 09/13/19 09/14/19 09/14/19 12:42 16:10 16:10 Hepatitis C Antibody Non-Reactive HIV 1&2 Antigen & Ab Non-Reactive Ur L.pneumophila Ag SARS-CoV-2 Rap RNA(RT-PCR) Not Detected SARS-CoV-2 IgG Ab Index 0.03 Ur Strep pneumoniae Ag 09/14/19 09/14/19 16:51 16:51 Hepatitis C Antibody HIV 1&2 Antigen & Ab Ur L.pneumophila Ag Negative SARS-CoV-2 Rap RNA(RT-PCR) SARS-CoV-2 IgG Ab Index Ur Strep pneumoniae Ag NEGATIVE EKG Reviewed by me: Yes (Sinus rhythm on telemetry monitoring) Hospitalist ROS - Review of Systems Cardiovascular: denies: chest pain, palpitations, orthopnea, paroxysmal noc. dyspnea, edema, light headedness, other Gastrointestinal: denies: nausea, vomiting, abdominal pain, diarrhea, constipation, melena, hematochezia, other - Medication Medications: Active Medications Generic Name Dose Route Start Last Admin Trade Name Freq PRN Reason Stop Dose Admin Hydrocodone Bitart/Acetaminophen 1 tab 09/15/19 09:04 09/16/19 05:19 [place] 5/325 PO 1 tab Q6H PRN Administration Moderate Pain (4-6) Albuterol Sulfate 2 puff 09/13/19 22:30 09/16/19 10:05 Proventil Hfa INH 2 puff [id number] MOISES Administration Amoxicillin/Clavulanate Potassium 875 mg 09/15/19 21:00 09/16/19 08:13 Augmentin PO 875 mg Q12HR MOISES Administration Aspirin 81 mg 09/16/19 09:00 09/16/19 08:13 Ecotrin PO 81 mg DAILY MOISES Administration Benzonatate 100 mg 09/14/19 01:06 09/14/19 22:09 Tessalon PO 100 mg TIDPRN PRN Administration Cough Calcium Carbonate 1,000 mg 09/13/19 14:37 09/14/19 22:09 Tums PO 1,000 mg Q4H PRN Administration Heartburn or Indigestion Chlorhexidine Gluconate 15 ml 09/15/19 21:00 09/16/19 08:14 Chlorhexidine Gluconate SSP 15 ml BID MOISES Administration Clonidine 0.1 mg 09/13/19 16:33 09/16/19 12:40 Catapres PO 0.1 mg Q4H PRN Administration SBP Greater Than 180 Enoxaparin Sodium 40 mg 09/15/19 09:00 09/16/19 08:14 Lovenox SC 40 mg 0900 MOISES Administration Famotidine 20 mg 09/13/19 21:00 09/16/19 08:14 Pepcid PO 20 mg BID MOISES Administration Folic Acid 1 mg 09/15/19 21:00 09/15/19 20:06 Folvite PO 1 mg HS MOISES Administration Guaifenesin 600 mg 09/13/19 21:00 09/16/19 08:14 Mucinex PO 600 mg Q12HR MOISES Administration Guaifenesin/Codeine Phosphate 5 ml 09/15/19 09:04 09/16/19 05:20 Robitussin Ac PO 5 ml Q6H PRN Administration Cough Multivitamins 1 tab 09/15/19 21:00 09/15/19 20:06 Theragran PO 1 tab HS MOISES Administration Prednisone 40 mg 09/16/19 08:00 09/16/19 08:13 Prednisone PO 40 mg QAM-WM MOISES Administration Saccharomyces Boulardii 250 mg 09/13/19 21:00 09/15/19 20:06 Florastor PO 250 mg HS MOISES Administration Thiamine HCl 100 mg 09/15/19 21:00 09/15/19 20:06 Thiamine PO 100 mg HS MOISES Administration - Exam General Appearance: NAD Neck: supple, no JVD Heart: RRR, no gallops, no rubs Respiratory: no rales, rhonchi Gastrointestinal: soft, non-distended, no guarding, no rigidity Extremities: no cyanosis, no clubbing Hosp A/P - Plan DVT proph w/lovenox, DVT proph w/SCDs Sepsis due to pneumonia suspected Anaerobic with ?Lung abscess Pleuritic CP -09/14 - prob due to above Hypertension Degenerative joint disease Sinus tachycardia due to above Chronic anemia prob due to nutritional def Hyponatremia Hypomagnesemia Hypophosphatemia Dental caries Plan: 09/15 Continue oral Augmentin with prednisone. Restart home lisinopril. If blood pressure remains uncontrolled will add calcium channel blockers. Echocardiogram pending. Continue other medications as above. Recheck labs in a.m. Blood cultures negative. 09/14 Continue IV meropenem. Stat EKG and chest x-ray reviewed. Troponins negative. Discontinue IV fluids. Add incentive spirometry. Continue other medications as above. Recheck labs in a.m. Add chlorhexidine mouthwash twice daily. Echo pending. 09/13 Continue meropenem. Vancomycin and azithromycin discontinued. Replace phosphorus Continue gentle IV hydration Reduce Lovenox to 40 mg daily for DVT prophylaxis Infectious disease and pulmonary input appreciated Continue to monitor closely. COVID testing negative. Recheck labs in a.m. 09/12 Gentle IV hydration for 24 hours due to sepsis Close monitoring Empiric antibiotics including vancomycin, Meropenem, and azithromycin Monitor vancomycin level Recheck labs in a.m. COVID testing negative Check inflammatory markers Droplet Isolation Consult infectious disease and Pulmonary Replace magnesium Patient is currently on room air Plan of care was discussed with the spouse in detail.
[2019-09-16] MEDS ORDERED: NIFEdipine XL 30 MG TAB PO SCH (13:45)
--- NOTE | 2019-09-16 18:38 | PRG ---
DATE OF SERVICE: 09/16/2019 SUBJECTIVE: Jd Roe has no complaints. OBJECTIVE: VITAL SIGNS: Blood pressures been elevated most of the afternoon up to 198/103. LUNGS: Clear. He has decreased breath sounds at his right base. HEART: Regular rhythm. ABDOMEN: Soft. EXTREMITIES: Without edema. LABORATORY DATA: White count 15.4, hemoglobin 8.9, platelets 511. Electrolytes are unremarkable. His ANCA panel still pending. IMPRESSION: 1. Pneumonia with multiple nodular infiltrates. These are clearly after we followed closely as an outpatient. He is on p.o. antibiotics. 2. Hypertension, poorly controlled, which may account in part for his pleural effusion. We will follow. Job ID: [id number]
[2019-09-16] MEDS: Saccharomyces boulardii 250 MG CAP PO SCH (20:10)
[2019-09-16] MEDS: Lisinopril 20 MG TAB PO SCH (20:11)
[2019-09-16] MEDS: Multivit, Therapeutic 1 TAB PO SCH (20:11)
[2019-09-16] MEDS: Folic Acid 1 MG TAB PO SCH (20:11)
[2019-09-16] MEDS: Thiamine 100 MG TAB PO SCH (20:13)
[2019-09-17] MEDS: Albuterol 200 PUFF (6.7GM INHALER) INH SCH ×4 (02:37→14:01)
[2019-09-17 05:16] LABS: Anion Gap 13 mmol/L (10-20); BUN (Urea Nitrogen) 7 mg/dL (8.4-25.7); CRP (Inflammatory) 8.51 mg/dL (= or < 0.5); Calc. Creatinine Clearance 131 mL/min (70-130); Calcium 8.9 mg/dL (7.8-10.44); Carbon Dioxide 23 mmol/L (23-31); Chloride 103 mmol/L (98-107); Estimated GFR-MDRD Greater than 90; Glucose 80 mg/dL (80-115); Potassium 4.2 mmol/L (3.5-5.1); Sodium 135 mmol/L (136-145)
[2019-09-17 08:16] LABS: #Basophils 0.1 thou/uL (0.0-0.2); #Eosinphils 0.1 thou/uL (0.0-0.7); #Monocytes 1.4 thou/uL (0.11-0.59); #Neutrophils 12.8 thou/uL (1.40-6.50); %Basophils 0.3 % (0.0-1.0); %Eosinophils 0.6 % (0.0-10.0); %Lymphocytes 12.4 % (21.0-51.0); %Monocytes 8.7 % (0.0-10.0); %Neutrophils 78.1 % (42.0-75.0); Mean Corpuscular HGB CONC 32.3 g/dL (32.0-36.0); Mean Corpuscular Hemoglobin 30.9 pg (27.0-31.0); Mean Corpuscular Volume 95.8 fL (78.0-98.0); Mean Platelet Volume 6.4 fL (7.4-10.4); Platelet Count 622 thou/uL (130-400); RBC Distribution Width 11.6 % (11.5-14.5); White Blood Cell (WBC) Count 16.4 thou/uL (4.8-10.8)
[2019-09-17] MEDS: Enoxaparin Sodium 40 MG/0.4 ML SYRINGE SC SCH (08:22)
[2019-09-17] MEDS: Amoxicillin/Potassium Clav 875 MG TAB PO SCH (08:22)
[2019-09-17] MEDS: Lisinopril 20 MG TAB PO SCH (08:22)
[2019-09-17] MEDS: Aspirin 81 mg Enteric Coated Tablet PO SCH (08:22)
[2019-09-17] MEDS: Chlorhexidine Gluconate 15 ML UDCUP SSP SCH (08:22)
[2019-09-17] MEDS: Famotidine 20 MG TAB PO SCH (08:22)
[2019-09-17] MEDS: guaiFENesin ER 600 MG TAB PO SCH (08:22)
[2019-09-17] MEDS: predniSONE 20 MG TAB PO SCH (08:23)
[2019-09-17] MEDS ORDERED: NIFEdipine XL 30 MG TAB PO SCH (09:00)
[2019-09-17] MEDS ORDERED: Carvedilol 3.125 MG TAB PO SCH ×2 (09:15→17:00)
[2019-09-17 12:07] VITALS: BP 156/82
--- NOTE | 2019-09-17 14:05 | PRG ---
DATE OF SERVICE: 09/17/2019 SUBJECTIVE: Jd Roe has no complaints. He says he is feeling well. He has had no fever. He denies any new symptoms that he had when he came in. OBJECTIVE: VITAL SIGNS: He is afebrile. LUNGS: Clear. HEART: Regular rhythm. ABDOMEN: Soft. PLAN: I have written a prescription for Augmentin and prednisone. He can follow up with me with a chest x-ray in 2 to 3 weeks. He has ANCA panel still pending. Job ID: [id number]
[2019-09-17 16:31] VITALS: TEMP 97.5
--- NOTE | 2019-09-17 19:11 | DIS ---
DATE OF ADMISSION: 09/13/2019 DATE OF DISCHARGE: 09/17/2019 DISCHARGE DISPOSITION: Home. FOLLOWUP: 1. Follow up with [facility] in 1 week. 2. Follow up with Dr. Damion Bauer in 2 weeks. ALLERGIES: NO KNOWN DRUG ALLERGIES. DISCHARGE MEDICATIONS: 1. Procardia XL 30 mg daily. 2. Carvedilol 3.125 mg b.i.d. 3. Lisinopril 20 mg b.i.d. 4. Augmentin 875 mg twice daily for 2 weeks. 5. Prednisone taper. 6. Thiamine. 7. Folic acid. 8. Multivitamin. 9. Mucinex. The patient was seen and examined on the day of discharge. Denies any new complaints. Shortness of breath has significantly improved. BRIEF HOSPITAL COURSE: The patient is a 64-year-old male with hypertension, presented to the emergency room with shortness of breath along with cough. He underwent a CT scan of the chest that showed peripheral nodular infiltrate with suspected lung abscess. The patient was monitored on the telemetry unit due to atypical chest discomfort on admission. He was started on IV meropenem along with vancomycin. Vancomycin was later discontinued. His blood culture remained negative. His WBC counts have improved gradually. He will be discharged home on Augmentin. His CRP improved from 14.2 to 8.51. SIGNIFICANT LABORATORY DATA: Hepatitis C antibody negative. HIV negative. Urine for Strep pneumoniae and Legionella negative. COVID testing was negative. COVID antibody was negative. TEST PENDING AT DISCHARGE: 1. DENICE. 2. Rheumatoid arthritis panel. 3. pANCA. Echocardiogram showed ejection fraction 60% to 65% with moderately dilated left atrium, mild tricuspid regurgitation, and grade 1/3 diastolic dysfunction. FINAL DIAGNOSES: 1. Sepsis due to pneumonia, suspected anaerobic with questionable lung abscess. 2. Pleuritic chest pain secondary to above. 3. Hypertension. 4. Degenerative joint disease. 5. Sinus tachycardia. 6. Chronic anemia probably due to nutritional deficiency. 7. Hyponatremia. 8. Hypomagnesemia. 9. Hypophosphatemia. 10. Dental caries. 11. Chronic diastolic dysfunction. 12. Mild mitral regurgitation. 13. Mild tricuspid regurgitation. 14. The patient understands the above plan of care. Job ID: [id number]
[2019-09-18 15:14] LABS: Cytoplasmic (C-ANCA) <1:20 titer (Neg:<1:20); Myeloperoxidase AutoAbs <9.0 U/mL (0.0-9.0); Perinuclear (P-ANCA) <1:20 titer (Neg:<1:20); Proteinase-3 AutoAbs Less than 3.5 U/mL (0.0-3.5)
[2019-09-19 15:17] LABS: ANA Symphony (Qualitative) Negative (Negative); ANA Symphony (Quantitative) 0.3 Ratio (< 0.7 Negative); dsDNA IgG Antibody 1.2 IU/mL (<10 Negative)
[2019-09-19 16:46] LABS: CCP IgG Antibody 1.1 EliAU/mL (<7 Negative); EliA RAS New Method **** NEW METHOD ****
== END 2019-09-17 17:50 | disposition home or self-care (01) | DRG 871 ==
LOC: ERS 11:22 → 2NO 14:36
PROVIDERS: ADMIT Internal Medicine; ATTEND Internal Medicine
DX: A41.9 Sepsis, unspecified organism (principal); J85.1 Abscess of lung with pneumonia; E87.1 Hypo-osmolality and hyponatremia; Z20.828 Contact with and (suspected) exposure to other viral communicable diseases; I10 Essential (primary) hypertension; M19.90 Unspecified osteoarthritis, unspecified site; R00.0 Tachycardia, unspecified; D53.9 Nutritional anemia, unspecified; E83.39 Other disorders of phosphorus metabolism; K02.9 Dental caries, unspecified; I08.1 Rheumatic disorders of both mitral and tricuspid valves
CPT/HCPCS: 36415; 71045; 71275; 80048; 80053; 81003; 81015; 82533; 82728; 83520; 83605; 83615; 83735; 83880; 84100; 84484; 85025; 85379; 85610; 85652; 85730; 86038; 86140; 86200; 86225; 86256; 86769; 86803; 87040; 87389; 87449; 87899; 93005; 93010; 93306; 96365; 96367; 96375; J0456; J0696; J1100; J1650; J1885; J2185; J3370; J3475; J3490; J7050; J7512; Q9967; U0002

== ENCOUNTER 2020-09-27 23:26 | Emergency (ER) | payer MEDICARE, MEDICAID, OTHER | END 2020-09-28 02:05 | disposition home or self-care (01) | LOC: ERS 23:26 | DX: S09.90XA Unspecified injury of head, initial encounter (principal); F10.129 Alcohol abuse with intoxication, unspecified; I10 Essential (primary) hypertension; Z79.899 Other long term (current) drug therapy; W19.XXXA Unspecified fall, initial encounter | CPT/HCPCS: 70450 ==

== ENCOUNTER 2022-06-08 12:21 | Emergency (ER) | payer OTHER | END 2022-06-08 12:25 | disposition left against medical advice (07) | LOC: ERS 12:21 | DX: Z53.21 Procedure and treatment not carried out due to patient leaving prior to being seen by health care provider (principal) ==

== ENCOUNTER 2022-11-18 13:23 | Emergency (ER) | payer MEDICAID, MEDICARE, OTHER ==
[2022-11-18 16:41] LABS: #Eosinphils 0.2 thou/uL (0.0-0.7); #Monocytes 0.6 thou/uL (0.11-0.59); #Neutrophils 6.9 thou/uL (1.40-6.50); %Basophils 0.3 % (0.0-1.0); %Eosinophils 1.9 % (0.0-10.0); %Lymphocytes 17.2 % (21.0-51.0); %Neutrophils 74.3 % (42.0-75.0); Hematocrit 29.2 % (42.0-52.0); Hemoglobin 10.1 g/dL (14.0-18.0); Mean Corpuscular HGB CONC 34.6 g/dL (32.0-36.0); Mean Corpuscular Hemoglobin 33.3 pg (27.0-31.0); Mean Corpuscular Volume 96.4 fl (78.0-98.0); Mean Platelet Volume 9.7 fL (7.4-10.4); Platelet Count 272 10x3/uL (130-400); RBC Distribution Width 11.2 % (11.5-14.5); Red Blood Cell (RBC) Count 3.03 mill/uL (4.70-6.10); White Blood Cell (WBC) Count 9.3 10x3/uL (4.8-10.8)
[2022-11-18 17:04] LABS: ALT (SGPT) 13 U/L (8-55); AST (SGOT) 22 U/L (5-34); Albumin 3.4 g/dL (3.4-4.8); Alkaline Phosphatase 85 U/L (40-110); Anion Gap 13 mmol/L (10-20); BUN (Urea Nitrogen) 5 mg/dL (8.4-25.7); Bilirubin, Total 0.3 mg/dL (0.2-1.2); Calc. Creatinine Clearance 0 mL/min (70-130); Calcium 9.2 mg/dL (7.8-10.44); Carbon Dioxide 26 mmol/L (23-31); Chloride 102 mmol/L (98-107); Estimated GFR 96; Globulin 3.5 g/dL (2.4-3.5); Glucose 80 mg/dL (80-115); Potassium 3.3 mmol/L (3.5-5.1); Protein, Total 6.9 g/dL (5.8-8.1); Sodium 138 mmol/L (136-145)
[2022-11-18 17:08] LABS: Troponin I Less than 0.010 ng/mL (< 0.028)
[2022-11-18] MEDS ORDERED: Amlodipine 5 MG TAB ONE (19:54)
[2022-11-18] MEDS ORDERED: Potassium Chloride 20 MEQ TAB ONE (21:15)
[2022-11-18] MEDS ORDERED: Furosemide 20 MG/2 ML VIAL ONE (21:15)
[2022-11-18] MEDS ORDERED: Acetaminophen 325 MG TAB ONE (21:45)
== END 2022-11-18 21:52 ==
LOC: EEVIPCON 13:23 → ERS 13:23
DX: R60.0 Localized edema (principal); I10 Essential (primary) hypertension; Z79.899 Other long term (current) drug therapy
CPT/HCPCS: 36415; 71045; 80053; 83880; 84484; 85025; 93005; 93970; 96374; J1940